=== PATIENT | male | born 1995 | race Asian ===

== ENCOUNTER 2017-06-24 19:05 | Emergency (ER) | payer SELFPAY ==
[2017-06-24 20:02] LABS: ADD MAN DIFF? NO
[2017-06-24 20:03] LABS: BASO # 0.1 x10^3/uL (0.0-0.2); BASO % 1 % (0-3); EOS # 1.1 x10^3/uL (0.0-0.7); EOS % 6 % (0-3); HEMOGLOBIN 15.3 g/dL (13.0-17.5); LYMPH # 2.7 x10^3/uL (1.0-4.8); LYMPH % 15 % (24-48); MEAN CORPUSCULAR HEMOGLOBIN 29 pg (25-35); MEAN CORPUSCULAR HGB CONC 34 g/dL (31-37); MEAN CORPUSCULAR VOLUME 85 fL (79-100); MONO % 6 % (0-9); NEUT # 12.5 x10^3uL (1.8-7.7); NEUT % 72 % (31-73); PLATELET COUNT 368 x10^3/uL (140-400); RED BLOOD COUNT 5.29 x10^6/uL (4.30-5.70); RED CELL DISTRIBUTION WIDTH 12.7 % (11.5-14.5); WHITE BLOOD COUNT 17.4 x10^3/uL (4.0-11.0)
[2017-06-24 20:11] LABS: ANION GAP 9 (6-14); BLOOD UREA NITROGEN 8 mg/dL (8-26); BUN/CREATININE RATIO 9 (6-20); CALCIUM 9.1 mg/dL (8.5-10.1); CARBON DIOXIDE 26 mmol/L (21-32); CHLORIDE 103 mmol/L (98-107); CREATININE 0.9 mg/dL (0.7-1.3); GFR 108.7; GLUCOSE 136 mg/dL (70-99); POTASSIUM 3.3 mmol/L (3.5-5.1); SODIUM 138 mmol/L (136-145)
[2017-06-24 20:18] LABS: ALBUMIN 3.9 g/dL (3.4-5.0); ALBUMIN/GLOBULIN RATIO 0.9 (1.0-1.7); ALK PHOS 69 U/L (46-116); ALT (SGPT) 59 U/L (16-63); AST (SGOT) 23 U/L (15-37); TOTAL BILIRUBIN 0.3 mg/dL (0.2-1.0); TOTAL PROTEIN 8.4 g/dL (6.4-8.2)
[2017-06-24] MEDS: IPRATRPIUM/ALBUTEROL 0.5/2.5MG 3 ML NEBU. NEB (20:20)
[2017-06-24 20:23] LABS: TROPONINI < 0.017 ng/mL (0.000-0.055)
[2017-06-24 20:48] LABS: BILIRUBIN,URINE NEGATIVE (NEG); CLARITY,URINE CLEAR; COLOR,URINE YELLOW; GLUCOSE,URINE NEGATIVE (NEG); NITRITE,URINE NEGATIVE (NEG); PROTEIN,URINE NEGATIVE (NEG-TRACE)
[2017-06-24] MEDS: DEXAMETHASONE SOD PHOS 4 MG/ML VIAL IV (20:48)
[2017-06-24 20:54] LABS: BACTERIA,URINE 0 /HPF (0-FEW); RBC,URINE OCC /HPF (0-2); SQUAMOUS EPITHELIAL CELL,UR FEW /LPF
[2017-06-24 21:28] LABS: D-DIMER < 0.27 ug/mlFEU (0.00-0.50)
[2017-06-24 22:00] LABS: INFLUENZA A PATIENT NEGATIVE (NEGATIVE); INFLUENZA B PATIENT NEGATIVE (NEGATIVE); OBC FLU VALID
[2017-06-24] MEDS ORDERED: CONTRAST GIVEN MC (23:15)
[2017-06-24] MEDS: IOHEXOL 300 MG/ML 100ML VIAL. IV (23:21)
== END 2017-06-25 00:51 | disposition home or self-care (01) ==
LOC: ER 06-25 00:51
DX: J18.9 Pneumonia, unspecified organism (principal)
CPT/HCPCS: 36415; 70450; 71046; 71275; 80053; 81001; 84484; 85025; 85379; 87804; 87804-59; 93005; 94640; 96365; 96375; 99285-25; J0690; J1100; J7620; Q9967